=== PATIENT | male | born 1970 | race Caucasian/White ===

== ENCOUNTER → 2019-11-13 10:47 | Outpatient (BNVA) | payer BC, SELFPAY | PROVIDERS: PCP Nurse Practitioner Family; Visit Provider Urology | DX: E29.1 Testicular hypofunction (principal); Z12.5 Encounter for screening for malignant neoplasm of prostate; R79.89 Other specified abnormal findings of blood chemistry | CPT/HCPCS: 81001 ==

== ENCOUNTER → 2020-07-16 08:06 | Outpatient (BNVA) | payer OTHER, SELFPAY | PROVIDERS: PCP Nurse Practitioner Family; Visit Provider Urology | DX: Z12.5 Encounter for screening for malignant neoplasm of prostate (principal); E29.1 Testicular hypofunction | CPT/HCPCS: 81003; 84403; G0103 ==

== ENCOUNTER → 2021-01-13 15:31 | Outpatient (BNVA) | payer OTHER, SELFPAY | PROVIDERS: PCP Nurse Practitioner Family; Visit Provider Urology | DX: R79.89 Other specified abnormal findings of blood chemistry (principal); E29.1 Testicular hypofunction | CPT/HCPCS: 84403 ==

== ENCOUNTER 2021-03-13 08:02 | Outpatient (CLI) | payer OTHER, SELFPAY ==
[2021-03-13 08:50] VITALS: BMI 27.3
--- NOTE | 2021-03-13 08:51 | NMCV_ITS ---
NM tammie perf SPECT r/s* [id number] Nathanael Fraser Age: 50 Gender: M : 1970 Exam Date: 03/13/2021 09:45 Ordering Phys: Rikki Menendez NP Technologist: LAYA Fenton Exam Location: [facility] Indications: CHEST PAIN STRESS TEST [facility] IMAGE PROTOCOL Rest/Stress 1 Exercise Day Radiopharmaceutical Dose (mCi) Administration Site Administered by Rest: Tc-99m 10.8 IV LAYA Campbell Sestamibi Stress:Tc-99m 32.8 IV LAYA Campbell Sestamibi Rest: 13-Mar-2021 60 Discovery 630 Stress: 13-Mar-2021 15 Discovery 630 Radiopharmaceutical was injected at 85 % maximum heart rate. Images obtained in supine and prone position. SPECT RESULTS Technical Quality: Excellent Raw Data Analysis: Normal Image Corrections: No attenuation or motion correction applied Summed Stress Score: 3 Summed Rest Score: 0 Summed Difference Score: 3 PERFUSION FINDINGS Small sized perfusion abnormality of mild severity of mid anterior and mid lateral quintero on stress images. FUNCTIONAL RESULTS (calculated via Gated SPECT) Stress Image LV EF (%): 73 Stress EDV (mL):84 TID: 0.81 Stress ESV (mL):23 FUNCTIONAL FINDINGS: The left ventricle is normal in size. Transient Ischemia Dilatation of 0.81. There is normal left ventricular systolic function. The left ventricular ejection fraction is normal with a value of 73%. There is normal left ventricular wall thickening with no regional wall motion abnormality. Normal end diastolic and end systolic volumes. IMPRESSIONS 1. Small sized reversible perfusion abnormality of mild severity of mid anterior and mid lateral quintero. 2. This may represent small area of ischemia in left anterior descending/circumflex artery territory. 3. Overall left ventricular systolic function is normal without regional wall motion abnormalities. 4. No prior similar studies to compare. Liseth Fuentes MD (Electronically Signed) Final Date: 15 March 2021 22:35 S
--- NOTE | 2021-03-13 08:51 | ECG_ITS ---
[facility] Test Date: 2021-03-13 Pat Name: Nathanael Fraser Department: Room: Gender: Male Facial Operator: : 1970 Requested By: Rikki Menendez Order Number: [id number] Barrios MD: Liseth Fuentes M.D. Interpretive Statements NAME OF STUDY: EXERCISE SESTAMIBI STRESS TEST INDICATION: Dyspnea on exertion, chest pain Baseline blood pressure of 135/92 mm Hg, heart rate of 67 beats per minute and oxygen saturation of 98%. EKG showed normal sinus rhythm, normal axis with nonspecific T wave inversion in lead III, aVF and V6. The patient exercised for 8 minutes 42 seconds on a standard Nik protocol. Patient attained a maximum heart rate of 153 beats per minute(88% of the maximum predicted heart rate) with a blood pressure at the peak exercise of 185/93 mm Hg and oxygen saturation 95%. The EKG at the peak exercise revealed sinus tachycardia with no significant ST-T wave changes. Patient did not have any chest pain or any significant arrhythmis with the exercise. The study was terminated due to exertional fatigue and shortness of breath. During the recovery phase, there were no new changes. Blood pressure at the end of the recovery phase was 133/85 mm Hg with a heart rate of 100 beats per minute and oxygen saturation 98%. CONCLUSION: 1. Normal EKG response to treadmill exercise. 2. No exercise-induced chest pain or cardiac arrhythmia 3. Excellent exercise tolerance, attained a maximum of 10.2 METs. Maximum VO2 of 35.7 mL/kg/min. 4. Baseline normal blood pressure with normal response to exercise. 5. Perfusion scan will be documented separately. Electronically Signed On 03-26-2021 12:38:24 CDT by Liseth Fuentes M.D. [id number]
[2021-03-13 10:39] VITALS: BP 133/85; PULSE 99
== END 2021-03-13 08:03 | disposition home or self-care (01) ==
LOC: CDL 08:04
PROVIDERS: PCP Nurse Practitioner Family; Visit Provider Nurse Practitioner Family
DX: R06.09 Other forms of dyspnea (principal); R07.9 Chest pain, unspecified; R06.02 Shortness of breath
CPT/HCPCS: 78452; 93017; A9500

== ENCOUNTER → 2021-04-28 10:26 | Outpatient (BNVA) | payer OTHER, SELFPAY | PROVIDERS: PCP Nurse Practitioner Family; Referring Provider Internal Medicine Cardiovascular Disease; Visit Provider Internal Medicine Cardiovascular Disease | DX: R94.39 Abnormal result of other cardiovascular function study (principal); R07.9 Chest pain, unspecified; R07.2 Precordial pain; Z01.818 Encounter for other preprocedural examination; Z20.822 Contact with and (suspected) exposure to COVID-19 | CPT/HCPCS: 80048; 85025; 85610; 87635 ==

== ENCOUNTER 2021-05-04 06:16 | Outpatient (CLI) | payer OTHER, SELFPAY ==
[2021-05-04] VITALS (17 sets, daily range): BP systolic 92–152; BP diastolic 63–94; PULSE 88–114; RESP 14–19; TEMP 36.9; O2SAT 91–96; BMI 28.1
--- NOTE | 2021-05-04 06:00 | XACV_ITS ---
Ht: 170 cm Wt: 82 kg BSA: 1.98 m2 Gender: Male : 1970 Any Known Allergies: Penicillins Exam Priority: Routine Indication(s): - Unstable angina Procedure(s): Procedure Description: Diagnostic procedure Procedure Description: Left Heart Catheterization Procedure Description: Left ventriculography Procedure Description: Coronary Angiography Luis Armando JOEL; Diagnostic Cath Status: Elective Diagnostic Findings * No disease noted in the Left Main, Left Anterior Descending, Right, or Circumflex coronary arteries. * Coronary angiography shows right dominance. Conclusions 1. Sluggish flow in the LAD and RCA was noted most likely due to endothelial dysfunction advised quitting smoking, continue use of isosorbide mononitrate and good control of blood pressure. 2. No disease noted in the Left Main, Left Anterior Descending, Right, or Circumflex coronary arteries. 3. All quintero are normal. 4. Normal left ventricular systolic function. Ejection fraction of 60%. Recommendations * Continue current medical management and risk factor modification. Diagnostic RX Recommendation: medical therapy and/or counseling Ventriculography Ejection Fraction: 60.0 % Left Ventriculography Findings: * LVEDP 16 mmHg. Pressures Phase:Rest AO : / ( 0 ) @ 6:06:00 AM / ( 0 ) @ 6:06:00 AM 84 / -16 ( 0 ) @ 6:12:00 AM 107 / 70 ( 86 ) @ 6:54:00 AM 108 / 71 ( 87 ) @ 6:54:00 AM / ( -2 ) @ 6:57:00 AM LV : 118 / -11 / 9 @ 6:53:00 AM 111 / -12 / 11 @ 6:54:00 AM 116 / -8 / 16 @ 6:54:00 AM Valves Phase:DefaultPhase AV : 9.0 @ 9:12:27 AM AV Mean Gradient: 11.0 @ 9:12:27 AM Clinical Evaluation EBL: 5mL-10mL Procedural Details Procedure Consent Obtained. Admit Source: Out Patient. Pre-Procedure Time Out. Identified patient by full name and date of as verbalized by the patient/guarantor. Does the consent match the physician's order: Yes. Accurate & Complete Informed Consent: Yes. Inpatient/Outpatient History & Physical on Chart: Yes. If H&P is completed, is and addenduem needed: No; If yes, is the addendum complete: N/A. Visualize and Verify Site with Patient/Guarantor: N/A. Relevant Radiology Images available: N/A. The risks, benefits, and alternatives of sedation and/or procedure were discussed by physician. The patient agrees to continue. Procedure started. [facility] Clinical Fraility Score: 3: Managing Well. Global Category Manager Indications: Unstable Angina. Chest Pain Symptom Assessment: Typical Angina Symptoms. Cardiovascular Instability: No, Stable. Correct patient, site and procedure confirmed by cath team. Current diagnosis: Unstable angina. PERRLA. 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 Lungs clear x 5 lobes. IV Site on Arrival: 20 gauge in the left anticubital. IV Fluids: 0.9% NaCl at KVO. 0 mL infused prior to clinical laboratory aides teacher. Pre Procedural Pulses: bilateral radial was 3+. Pre Procedural Pulses: bilateral posterior tibial was 3+. Pre Procedural Pulses: bilateral dorsalis pedis was 3+. Oxygen started at 2liters/min via nasal canula. right groin was prepped with chloroprep then draped in the usual sterile fashion. right radial was prepped with chloroprep then draped in the usual sterile fashion. Physician notified. Baseline sample Acquired. HR: 92 BPM. Baseline sample Acquired. HR: 101 BPM. Family updated by Dr Durán prior to start of procedure. Equipment: 5F - Radial. Cardiac Cath Pack. ACIST Manifold Kit Model BT 2000. Heparinized Saline (2 units/mL), 1000 mL bag. Inventory is WealthTouch 5Fr Glidesheath. Equipment: 6F - Radial. Equipment: 5F - Femoral. Equipment: 6F - Femoral. Physician arrived. Physician scrubbed in. Immediate Pre-Procedure Time Out. Correct Patient: Yes; Correct Procedure: Yes; Correct Site: Yes; Correct Patient Position: Yes; Correct Supplies: Yes; Dried Flammable Prep: Yes; Blood Products Available: N/A;. Lidocaine 1% infiltrated to the right radial. Arterial access obtained. A TR 5FR Radial TIG 4.0 110cm was advanced over the wire and used for left and right coronary angiography. Wire removed. Hand injection of the brachial region to assess for radial loop. Radial loop. Catheter removed over the wire. Aborting radial approach. MD attempting to gain access in the femoral artery. A TR Band was successful obtaining hemostatsis at the Right Radial artery insertion site. Lidocaine 1% infiltrated to the right groin. Arterial access obtained with micropuncture set. A CRD 5F JL4 Diagnostic Catheter was advanced over the wire and used for Left coronary angiography. Kit, Micropuncture. Multiple views taken of left coronary artery. Catheter removed over the exchange wire. A CRD 5F JR4 Diagnostic Catheter was advanced over the wire and used for Right coronary angiography. Multiple views taken of right coronary artery. Catheter removed over the exchange wire. Physician review of films. A CRD 5F 145 Angled Pig Diagnostic Catheter was advanced over the wire and used for Ventriculography. Family updated. EDP Sample taken: LV 118/-12,9; HR: 93 BPM; SpO2: 97%. LV gram performed in JOHN @ 10 mL/second for a total of 30 mL. Patient EF: Normal. EDP Sample taken: LV 111/-13,11; HR: 90 BPM; SpO2: 96%. Pullback taken: LV 116/-9,16; AO 107/70(86); Mean: 11mmHg, Peak to Peak: 9mmHg, SEP: 20sec/min; HR: 90 BPM; SpO2: 96%. Catheter removed over the exchange wire. A Right femoral angiogram was performed to determine safe placement of closure device. A Mynx was successful obtaining hemostatsis at the Right Femoral artery insertion site. Sheath(s) removed and manual pressure held until hemostasis was achieved. Sterile 4x4 and Op-site applied to the puncture site. No oozing or hematoma noted. Post sheath removal instructions were given and the patient verbalized understanding. Mynx placed without complications. Lot [id number]. Exp 03-05-23. No signs or symptoms of hematoma noted. Sterile dressing applied per usual sterile fashion. Post Procedure: Pulses reassessed and unchanged. PERRLA. 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 No VTE prophylaxis required. Medication's Wasted: Lidocaine 1% = 2 mL. Medication's Wasted: Nitro = 49.8 mg. Medication's Wasted: Heparin = 1000 units. Total IV fluids: 50 mL. Fluoro: 4:09. Contrast type used: Omnipaque 300 mg/mL, 150 mL bottle. Omnipaque 96 ml. Post-op diagnosis: Endothelial dysfunction. Complications: None. Estimated blood loss: 5mL-10mL. Procedure completed. Patient transferred by bed to CPRU. Vital chart was stopped. Current Diagnosis : Unstable angina. Access Site Site: Right Radial artery Sheath Size: 6 Fr Hemostasis Method: TR Band Hemostasis Success: Successful Site: Right Femoral artery Sheath Size: 6 Fr Hemostasis Method: Mynx Hemostasis Success: Successful Procedure Medications Start: 8:09 AM Stop: 8:09 AM Medication: Versed Amount: 1 mg Route: I.V. Start: 8:09 AM Stop: 8:09 AM Medication: Fentanyl Amount: 50 mcg Route: I.V. Start: 8:18 AM Stop: 8:18 AM Medication: Versed Amount: 1 mg Route: I.V. Start: 8:18 AM Stop: 8:18 AM Medication: Lopressor (metoprolol) Amount: 5 mg Route: I.V. Start: 8:21 AM Stop: 8: AM Medication: Nitrogylcerin Amount: 200 mcg Route: I.A. Start: 8:22 AM Stop: 8: AM Medication: Fentanyl Amount: 25 mcg Route: I.V. Start: 8:35 AM Stop: 8:35 AM Medication: Versed 1 mg and Fentanyl 25 mcg Amount: 1 Route: I.V. Start: 8:47 AM Stop: 8:47 AM Medication: Versed Amount: 1 mg Route: I.V. I, the attending physician, have reviewed and verified all procedure medications. Yes, all medications given per verbal order History/Risk Factors Hypertension: Yes Dyslipidemia: Yes Peripheral Arterial Disease (PAD): No Myocardial Infarction ([place]): No Obesity: No Renal Disease: No Tobacco Use: Current/Recent(w/in 1 year) Prior Interventions PCI: No CABG: No Valve Surgery: No Report Signatures Finalized by Gloria Durán MD on 05/17/2021 07:21 PM
[2021-05-04] MEDS: diphenhydrAMINE 50 mg Capsule PO (06:52)
--- NOTE | 2021-05-04 08:09 | W.PM.OPSUD ---
Surgery/Procedure H&P Update DATE OF PROCEDURE: May 04, 2021 DATE H&P PERFORMED: 04/16/21 H&P UPDATE INFORMATION: I have reviewed H&P completed within last 30 days, I have examined patient prior to procedure and No changes to prior documentation PREOP DIAGNOSIS: Abnormal stress test, worsening of chest pain PLANNED PROCEDURE: Operation Date: 05/04/21 07:00 Proposed Procedures p Cardiac Catheterization(Left) - Gloria Durán MD PATIENT REASSESSED PRIOR TO SEDATION, WITH NO CHANGE NOTED: Yes PHYSICAL EXAM: alert, oriented x 3 and clear to auscultation bilaterally AIRWAY EVAL/ANESTHESIA PLAN: ASA II and Risks, benefits & alternatives of sedation and/or procedure discussed ADDITIONAL INFORMATION: Patient has been explained he understand risk for stroke contrast-induced nephropathy dialysis major minor bleed urgent emergent bypass surgery vascular surgery hematoma pseudoaneurysm. He is a candidate for DAPT
--- NOTE | 2021-05-04 09:15 | PC.NURSE ---
received pt from clinical laboratory director post diagnostic [facility] via stretcher. pt has tr band on right wrist with no hamatoma or bruising noted. distal pulse palpable. he also has a right femoral site where a closure device was used. no bleeding or hematoma noted. distal pulsed palpable. pt asleep but able to be awakened. pt family at bedside and educated on pt recovery. family stated understanding. will continue to educate throughout recovery. plan to dc after 4 hrs. will continue to monitor.
--- NOTE | 2021-05-04 12:25 | PC.NURSE ---
pt up to the bathroom post 3 hours flat. pt complains of no pain and no hematoma noted. will continue to monitor til discharge.
== END 2021-05-04 13:07 | disposition home or self-care (01) ==
PROVIDERS: PCP Nurse Practitioner Family; Visit Provider Internal Medicine Cardiovascular Disease
DX: R07.89 Other chest pain (principal); E78.5 Hyperlipidemia, unspecified; I10 Essential (primary) hypertension; R94.39 Abnormal result of other cardiovascular function study; E78.00 Pure hypercholesterolemia, unspecified; R07.2 Precordial pain; R06.02 Shortness of breath
CPT/HCPCS: 36415; 93452; C1760; C1769; C1887; C1894; J1644; J2250; J3010; J3490; J7030; Q0163; Q9967

== ENCOUNTER → 2021-05-11 10:17 | Outpatient (BNVA) | payer OTHER, SELFPAY | PROVIDERS: PCP Nurse Practitioner Family; Visit Provider Nurse Practitioner Family | DX: I10 Essential (primary) hypertension (principal) | CPT/HCPCS: 80048 ==

== ENCOUNTER → 2021-07-21 15:05 | Outpatient (BNVA) | payer OTHER, SELFPAY | PROVIDERS: PCP Nurse Practitioner Family; Visit Provider Nurse Practitioner Family | DX: N52.9 Male erectile dysfunction, unspecified (principal); E29.1 Testicular hypofunction | CPT/HCPCS: 81003; 84403 ==

== ENCOUNTER → 2021-07-24 07:51 | Outpatient (BNVA) | payer OTHER, SELFPAY | PROVIDERS: PCP Nurse Practitioner Family; Visit Provider Nurse Practitioner Family | DX: R79.89 Other specified abnormal findings of blood chemistry (principal) | CPT/HCPCS: 84403 ==

== ENCOUNTER 2022-01-19 15:02 | Outpatient (CLI) | payer OTHER, SELFPAY ==
[2022-01-19 16:48] LABS: Testosterone Total - Urology 384 ng/mL (300-1000)
== END 2022-01-19 15:03 | disposition home or self-care (01) ==
LOC: LAB 15:03
PROVIDERS: PCP Nurse Practitioner Family; Visit Provider Urology
DX: N52.9 Male erectile dysfunction, unspecified (principal)
CPT/HCPCS: 81003; 84403

== ENCOUNTER → 2022-04-02 11:48 | Outpatient (BNVA) | payer OTHER, SELFPAY | PROVIDERS: PCP Nurse Practitioner Family; Visit Provider Internal Medicine Cardiovascular Disease | DX: R07.2 Precordial pain (principal); R94.39 Abnormal result of other cardiovascular function study; E78.00 Pure hypercholesterolemia, unspecified; I10 Essential (primary) hypertension; I25.10 Atherosclerotic heart disease of native coronary artery without angina pectoris | CPT/HCPCS: 36415; 80053; 80061; 83721 ==

== ENCOUNTER 2022-07-20 08:48 | Outpatient (CLI) | payer OTHER, SELFPAY ==
[2022-07-20 10:32] LABS: Testosterone Total 413.5 ng/dL (193-740)
[2022-07-20 12:04] LABS: PSA Screen - Urology 3.61 ng/mL (0-4)
== END 2022-07-20 08:49 | disposition home or self-care (01) ==
LOC: LAB 08:56
PROVIDERS: PCP Nurse Practitioner Family; Visit Provider Urology
DX: Z12.5 Encounter for screening for malignant neoplasm of prostate (principal); N52.9 Male erectile dysfunction, unspecified
CPT/HCPCS: 36415; 84403; G0103

== ENCOUNTER 2022-10-16 21:26 | Emergency (ER) | payer OTHER, SELFPAY ==
[2022-10-16 21:31] VITALS: BP 121/97; PULSE 125; RESP 18; TEMP 36.4; O2SAT 95; BMI 27.1
--- NOTE | 2022-10-16 21:43 | ECG_ITS ---
[facility] Test Date: 2022-10-16 Pat Name: Nathanael Fraser Department: Room: Gender: Male Compensation Supervisor: : 1970 Requested By: Bienvenido Serrano Order Number: [id number] Denis MD: Mary Ny M.D. Measurements Intervals [place] Rate: 120 P: 64 NE: 146 QRS: 77 QRSD: 97 T: -14 QT: 295 QTc: 418 Interpretive Statements SINUS TACHYCARDIA NONSPECIFIC ST & T-WAVE ABNORMALITY Compared to ECG 12/07/2018 13:13:00 T-wave abnormality now present Sinus rhythm no longer present Electronically Signed On 10-17-2022 21:05:46 CDT by Mary Ny M.D. [id number]
--- NOTE | 2022-10-16 22:18 | ECG_ITS ---
[facility] Test Date: 2022-10-16 Pat Name: Nathanael Fraser Department: Room: Gender: Male Mapping Specialist: : 1970 Requested By: Milan Zavala Order Number: [id number] Denis MD: Mary Ny M.D. Measurements Intervals [place] Rate: 91 P: 65 WV: 173 QRS: 60 QRSD: 93 T: 33 QT: 335 QTc: 414 Interpretive Statements SINUS RHYTHM NONSPECIFIC T-WAVE ABNORMALITY Compared to ECG 10/16/2022 21:43:27 Sinus tachycardia no longer present T-wave abnormality still present Electronically Signed On 10-17-2022 21:06:27 CDT by Mary Ny M.D. [id number]
--- NOTE | 2022-10-16 22:18 | XRR_ITS ---
PROCEDURE INFORMATION: Exam: XR Chest Exam date and time: 10/16/2022 10:29 PM Age: 52 years old Clinical indication: Pain; Chest pressure; Additional info: Cp TECHNIQUE: Imaging protocol: Radiologic exam of the chest. Views: 1 view. COMPARISON: CR XR chest 1V [id number] 12/07/2018 10:12 AM FINDINGS: Lungs: Unremarkable. No consolidation. Pleural spaces: Unremarkable. No pleural effusion. No pneumothorax. Heart/Mediastinum: Unremarkable. No cardiomegaly. Bones/joints: Unremarkable. XR/XR chest 1V portable [id number] IMPRESSION: No acute findings.
[2022-10-16 22:41] LABS: Basophils # 0.1 10^3/uL (0.0-0.1); Eosinophils # 0.1 10^3/uL (0.0-0.8); Eosinophils % 1.8 %; Hematocrit 52.7 % (42.0-52.0); Hemoglobin 17.7 g/dL (11.7-16.6); Lymphocytes # 1.3 10^3/uL (0.8-4.8); Lymphocytes % 15.8 %; Mean Corpuscular HGB Conc 33.6 g/dL (30.0-36.0); Mean Corpuscular Hemoglobin 30.3 pg (28.0-34.0); Mean Corpuscular Volume 90.2 fl (80-94); Monocytes # 0.6 10^3/uL (0.2-0.9); Monocytes % 7.5 %; Neutrophils # 5.88 10^3/uL (1.8-7.7); Neutrophils % 73.5 %; Nucleated Red Blood Cells % 0 %; Platelet Count 212 10^3/cmm (130-400); Red Blood Count 5.84 10^6/uL (4.1-5.3); Red Cell Distribution Width 11.6 % (12.1-15.1)
[2022-10-16] MEDS: sodium chloride 0.9% 1,000 ML 999 ML IV (22:51)
[2022-10-16] MEDS: diphenhydrAMINE 50 mg/mL SDV 1mL 25 MG IVP (22:51)
[2022-10-16] MEDS: dexamethasone 10 mg/mL INJ IVP (22:51)
[2022-10-16] MEDS: ondansetron 2 mg/ML SDV 2 mL 4 MG IVP (22:51)
[2022-10-16 22:55] VITALS: BP 131/76; PULSE 99; RESP 18; O2SAT 96
[2022-10-16 22:55] LABS: INR 0.95 (0.8-1.2)
[2022-10-16 22:56] LABS: Partial Thromboplastin Time 26.5 SECONDS (23.9-36.7)
--- NOTE | 2022-10-16 22:57 | ED_ITS ---
Documented by User: Milan Zavala 10/16/22 23:12 HPI - Chest Pain General: Chief Complaint: Chest Pain Stated Complaint: cp, arms tingling, sob Time Seen by Provider: 10/16/22 21:40 History of Present Illness: 52-year-old male presents emergency department chief complaint having midsternal chest pain and pressure nausea and a rash and swelling to his body patient reports that he has been taking Antabuse over the last several weeks with the hopes of discontinuing alcohol in which upon drinking some alcohol today he got quite sick patient reports he had 2 beers prior to arrival he reported that he developed chest pressure shortness of breath facial swelling and a diffuse rash. Patient reports he has been a social drinker since the age of 17. The patient does not recall any prior history of cardiac issues reports no recent infections or illnesses or any other associated symptoms. Associated symptoms: Reports dyspnea, nausea and palpitations; Deny abdominal pain, fever(s) or vomiting Review of Systems General: Reports: 10 or more systems reviewed and unremarkable except in HPI and below Const: Denies: fever(s), chills, fatigue or malaise Eyes: Denies: change in vision or blurry vision Card: Reports: chest pain and palpitations Resp: Reports: dyspnea GI: Reports: nausea; Denies: abdominal pain or vomiting : Denies: flank pain Musc: Denies: extremity pain or extremity swelling Skin/Breast: Reports: rash and erythema Neuro: Denies: headache(s) Psych: Denies: anxiety or depression Michael/Lymph: Denies: easy bleeding All/Imm: Denies: urticaria, throat swelling or facial swelling PFSH ED PFSH: Medical History Erectile dysfunction History of malignant melanoma HTN (hypertension) Hypercholesteremia Hypogonadism in male Prostate cancer screening Surgical History Hx of appendectomy Social History Smoking and tobacco status: never smoked Alcohol intake: current Alcohol intake frequency: 0-2 Drinks per Day Substance/Drug Use: unknown Adopted: No Caregiver/support person: No Lives independently: No Household members: spouse Marital status: Current occupational status: employed Current gender identity: Male Physical Exam Narrative: EXAM NARRATIVE: Patient appears in moderate distress rash diffusely appreciated mild facial swelling noted Const: COMMON NORMALS: no acute distress, patient oriented x3 and healthy appearing HENMT: COMMON NORMALS: normocephalic and atraumatic HEAD & SCALP: normocephalic and atraumatic Eye: COMMON NORMALS: Equal, round and reactive pupils present and EOMs intact bilaterally PUPIL: Yes Equal, round and reactive pupils present Neck/C-Spine: COMMON NORMALS: full ROM, supple and no JVD Lymph: LYMPHATIC: no lymphadenopathy noted Chest: COMMONS NORMALS: normal inspection of the chest and normal palpation of entire chest wall Resp: COMMON NORMALS: normal respiratory effort, No retractions and clear to auscultation bilaterally EFFORT & INSPECTION: Yes able to speak in complete sentences and Yes symmetric chest movement AUSCULTATION: clear to auscultation bilaterally Cardio: COMMON NORMALS: no JVD and regular rhythm; negative for regular rate (Mild pericardial fusion exam) RATE: abnormal rate (Mild pericardial fusion exam) RHYTHM: regular rhythm GI: COMMON NORMALS: Normal to inspection, nondistended, normoactive bowel sounds present, Soft to palpation and non-tender INSPECTION: Yes normal to inspection PALPATION: Yes Soft to palpation : COMMON NORMALS: Yes no CVA tenderness BLADDER/KIDNEY EXAM: Yes no CVA t enderness Back/Pelvis: COMMON NORMALS: no CVA tenderness Extremity: COMMON NORMALS: normal to inspection and full ROM Neuro: COMMON NORMALS: patient oriented x3, CN's II-XII intact bilaterally, moves all extremities and no focal motor deficits Psych: COMMON NORMALS: mental status grossly normal, Normal thought process present, cooperative and normal affect THOUGHT PROCESS: Normal thought process present Skin: COMMON NORMALS: no rashes or lesions noted GENERAL SKIN EXAM: no rashes or lesions noted Course Vital Signs: Vital signs: Vital Signs Temperature 97.6 F 10/16/22 21:31 Pulse Rate 93 10/17/22 00:35 Respiratory Rate 21 H 10/17/22 00:35 Blood Pressure 121/78 10/17/22 00:35 Pulse Oximetry 95 10/17/22 00:35 Oxygen Delivery Me thod Room Air 10/17/22 00:35 MDM - Chest Pain Medical Decision Making Due to the patient's symptoms and condition IV established basic lab work imaging obtained Concern for possible disulfiram reaction due to patient taking Antabuse with routine alcohol we will go ahead and treat as needed IV fluids Benadryl stomach meds as well as nausea meds we will also do a basic cardiac work-up. We will continue to follow. This patient was signed out to Dr. Gardner at [phone] anticipate discharge home pending lab work and imaging Lab Data 10/16/22 22:30 10/16/22 22:30 Radiology Impressions Chest X-Ray 10/16/22 22:18 IMPRESSION: No acute findings. Laboratory Results WBC 8.0 10^3/uL (4.0-10.0) 10/16/22 22:30 RBC 5.84 10^6/uL (4.1-5.3) H 10/16/22 22:30 Hgb 17.7 g/dL (11.7-16.6) H 10/16/22 22:30 Hct 52.7 % (42.0-52.0) H 10/16/22 22:30 MCV 90.2 fl (80-94) 10/16/22 22: MCH 30.3 pg (28.0-34.0) 10/16/22 22: MCHC 33.6 g/dL (30.0-36.0) 10/16/22 22: RDW 11.6 % (12.1-15.1) L 10/16/22 22: Plt Count 212 10^3/cmm (130-400) 10/16/22 22:30 MPV 10.0 fL (7.4-10.4) 10/16/22 22:30 Neut % (Auto) 73.5 % 10/16/22 22: Lymph % (Auto) 15.8 % 10/16/22 22:30 [place] % (Auto) 7.5 % 10/16/22 22: Eos % (Auto) 1.8 % 10/16/22: Baso % (Auto) 1.0 % 10/16/22: Neut # (Auto) 5.88 10^3/uL (1.8-7.7) 10/16/22 22: Lymph # (Auto) 1.3 10^3/uL (0.8-4.8) 10/16/22 22: [place] # (Auto) 0.6 10^3/uL (0.2-0.9) 10/16/22 22:30 Eos # (Auto) 0.1 10^3/uL (0.0-0.8) 10/16/22 22:30 Baso # (Auto) 0.1 10^3/uL (0.0-0.1) 10/16/22 22:30 Nucleated RBC % (auto) 0 % 10/16/22 22: Nucleated RBCs # 0.0 /100WBC 10/16/22 22: PT 13.00 SECONDS (12.1-14.9) 10/16/22 22: INR 0.95 (0.8-1.2) 10/16/22: APTT 26.5 SECONDS (23.9-36.7) 10/16/22 22:30 Sodium 135 mmol/L (136-145) L 10/16/22 22: Potassium 3.6 mmol/L (3.5-5.1) 10/16/22: Chloride 99 mmol/L (98-107) 10/16/22: Carbon Dioxide 20 mmol/L (22-29) L 10/16/22 22: Anion Gap 19.6 (5-19) H 10/16/22 22:30 BUN 15 mg/dL (6-20) 10/16/22: Creatinine 0.9 mg/dL (0.7-1.2) 10/16/22 22:30 GFR Calculation 89.3 mL/min (90-130) L 10/16/22 22: Glucose 157 mg/dL (65-115) H 10/16/22 22: Calculated Osmolality 284 mOsm/kg (285-295) L 10/16/22: Calcium 9.3 mg/dL (8.5-10.5) 10/16/22:30 Total Bilirubin 0.2 mg/dL (0.15-1.2) 10/16/22 22:30 AST 43 U/L (0-40) H 10/16/22 22:30 ALT 67 U/L (0-41) H 10/16/22 22:30 Alkaline Phosphatase 88 U/L (40-130) 10/16/22 22: Troponin T Baseline 11 ng/L (0-15) 10/16/22 22:30 Troponin T 120 Minute 12.22 ng/L (0-15) 10/17/22 00:05 Delta Troponin T 1.22 ABS# (0-10) 10/17/22 00:05 NT-Pro-B Natriuret Pep 36 pg/mL (0-125) 10/16/22 22:30 Total Protein 6.7 g/dL (6.6-8.7) 10/16/22 22:30 Albumin 4.2 g/dL (3.5-5.2) 10/16/22 22:30 Globulin 2.5 g/dL (1.3-4.6) 10/16/22 22:30 Lipase 40 U/L (13-60) 10/16/22 22:30 Urine Color Yellow (Yellow) 10/16/22 22:44 Urine Appearance Clear (CLEAR) 10/16/22 22:44 Urine pH 5 (5-7) 10/16/22 22:44 Ur Specific [place] 1.005 (1.005-1.030) 10/16/22 22:44 Urine Protein Neg (Negative) 10/16/22 22:44 Urine Glucose (UA) 1+ (Normal) H 10/16/22 22:44 Urine Ketones Negative (Negative) 10/16/22 22:44 Urine Blood Neg (Negative) 10/16/22 22:44 Urine Nitrate Negative (Negative) 10/16/22 22:44 Urine Bilirubin Neg (Negative) 10/16/22 22:44 Urine Urobilinogen Norm mg/dL (Negative) 10/16/22 22:44 Ur Leukocyte Esterase Negative (Negative) 10/16/22 22:44 Urine Opiates Screen Negative ng/mL (Negative) 10/16/22 22:44 Ur Barbiturates Screen Negative ng/mL (Negative) 10/16/22 22:44 Ur Phencyclidine Scrn Negative ng/mL (Negative) 10/16/22 22:44 Ur Amphetamines Screen Negative ng/mL (Negative) 10/16/22 22:44 U Benzodiazepines Scrn Negative ng/mL (Negative) 10/16/22 22:44 Urine Cocaine Screen Negative ng/mL (Negative) 10/16/22 22:44 U Marijuana (THC) Screen Negative ng/mL (Negative) 10/16/22 22:44 Discharge Plan Discharge Patient Disposition: Home Clinical Impression: Chest pain Condition: Stable Prescriptions: No Action isosorbide mononitrate 30 mg tablet extended release 24 hr 30 mg PO BID Qty: 180 4RF lisinopril 5 mg tablet 5 mg PO DAILY Qty: 90 4RF Viibryd 40 mg tablet 40 mg PO DAILY Rx Instructions: must administer with a meal/food buspirone 15 mg tablet 15 mg PO DAILY nitroglycerin [Nitrostat] 0.4 mg tablet, sublingual 0.4 mg sublingual Q5M PRN (Reason: chest pain) Qty: 25 3RF Rx Instructions: do not exceed 3 doses per episode lovastatin 10 mg tablet 10 mg PO DAILY Qty: 90 3RF testosterone cypionate 200 mg/mL oil 200 mg IM Q7D Qty: 10 5RF Discharge Orders: Discharge ED (Routine); Ordered 10/17/22 Ordered By: Bienvenido Gardner Referrals: Rikki Menendez NP [Primary Care Provider] - 1-3 days Patient Instructions: Chest Pain (ED) Activity Restrictions/Additional Instructions: Return for repeated episodes of chest pain, worsening shortness of breath, other concerning symptoms. See your doctor this week. Coding Level of Care Code ED Ski Binding Fitter And Repairer for Chg Fwd Documented by User: Bienvenido Gardner DO 10/17/22 01:16 HPI - Chest Pain General: Chief Complaint: Chest Pain Stated Complaint: cp, arms tingling, sob Time Seen by Provider: 10/16/22 21:40 PFSH ED PFSH: Medical History Erectile dysfunction History of malignant melanoma HTN (hypertension) Hypercholesteremia Hypogonadism in male Prostate cancer screening Surgical History Hx of appendectomy Social History Smoking and tobacco status: never smoked Alcohol intake: current Alcohol intake frequency: 0-2 Drinks per Day Substance/Drug Use: unknown Adopted: No Caregiver/support person: No Lives independently: No Household members: spouse Marital status: Current occupational status: employed Current gender identity: Male Course Vital Signs: Vital signs: Vital Signs Temperature 97.6 F 10/16/22 21:31 Pulse Rate 93 10/17/22 00:35 Respiratory Rate 21 H 10/17/22 00:35 Blood Pressure 121/78 10/17/22 00:35 Pulse Oximetry 95 10/17/22 00:35 Oxygen Delivery Me thod Room Air 10/17/22 00:35 MDM - Chest Pain Medical Decision Making Due to the patient's symptoms and condition IV established basic lab work imaging obtained Concern for possible disulfiram reaction due to patient taking Antabuse with routine alcohol we will go ahead and treat as needed IV fluids Benadryl stomach meds as well as nausea meds we will also do a basic cardiac work-up. We will continue to follow. This patient was signed out to Dr. Gardner at 2305 anticipate discharge home pending lab work and imaging 52-year-old gentleman checked out to me at shift change by the previous physician. He had chest pain and vomiting. Suspect a reaction to drinking alcohol while on Antabuse. CBC shows hemoconcentration with a hemoglobin of 17.7. Bicarbonate is 20. BMP is otherwise not remarkable. Liver enzymes are minimally elevated. Urine drug screen is negative. Troponin did not rise at 2 hours. EKG shows a sinus rhythm with a rate of 70 normal axis normal intervals, and no ST elevation or depression. He will be allowed discharge home close outpatient follow-up Lab Data 10/16/22 22:30 10/16/22 22:30 Radiology Impressions Chest X-Ray 10/16/22 22:18 IMPRESSION: No acute findings. Laboratory Results WBC 8.0 10^3/uL (4.0-10.0) 10/16/22 22:30 RBC 5.84 10^6/uL (4.1-5.3) H 10/16/22 22:30 Hgb 17.7 g/dL (11.7-16.6) H 10/16/22 22:30 Hct 52.7 % (42.0-52.0) H 10/16/22 22:30 MCV 90.2 fl (80-94) 10/16/22: MCH 30.3 pg (28.0-34.0) 10/16/22: MCHC 33.6 g/dL (30.0-36.0) 10/16/22: RDW 11.6 % (12.1-15.1) L 10/16/22: Plt Count 212 10^3/cmm (130-400) 10/16/22: MPV 10.0 fL (7.4-10.4) 10/16/22: Neut % (Auto) 73.5 % 10/16/22: Lymph % (Auto) 15.8 % 10/16/22: [place] % (Auto) 7.5 % 10/16/22: Eos % (Auto) 1.8 % 10/16/22 Baso % (Auto) 1.0 % 10/16/22 Neut # (Auto) 5.88 10^3/uL (1.8-7.7) 10/16/22: Lymph # (Auto) 1.3 10^3/uL (0.8-4.8) 10/16/22: [place] # (Auto) 0.6 10^3/uL (0.2-0.9) 10/16/22: Eos # (Auto) 0.1 10^3/uL (0.0-0.8) 10/16/22 Baso # (Auto) 0.1 10^3/uL (0.0-0.1) 10/16/22: Nucleated RBC % (auto) 0 % 10/16/22 Nucleated RBCs # 0.0 /100WBC 10/16/22: PT 13.00 SECONDS (12.1-14.9) 10/16/22 INR 0.95 (0.8-1.2) 10/16/22 APTT 26.5 SECONDS (23.9-36.7) 10/16/22: Sodium 135 mmol/L (136-145) L 10/16/22: Potassium 3.6 mmol/L (3.5-5.1) 10/16/22 22:30 Chloride 99 mmol/L (98-107) 10/16/22 22:30 Carbon Dioxide 20 mmol/L (22-29) L 10/16/22 22:30 Anion Gap 19.6 (5-19) H 10/16/22 22:30 BUN 15 mg/dL (6-20) 10/16/22 22:30 Creatinine 0.9 mg/dL (0.7-1.2) 10/16/22 22:30 GFR Calculation 89.3 mL/min (90-130) L 10/16/22 22:30 Glucose 157 mg/dL (65-115) H 10/16/22 22:30 Calculated Osmolality 284 mOsm/kg (285-295) L 10/16/22 22:30 Calcium 9.3 mg/dL (8.5-10.5) 10/16/22 22:30 Total Bilirubin 0.2 mg/dL (0.15-1.2) 10/16/22 22:30 AST 43 U/L (0-40) H 10/16/22 22:30 ALT 67 U/L (0-41) H 10/16/22 22:30 Alkaline Phosphatase 88 U/L (40-130) 10/16/22 22:30 Troponin T Baseline 11 ng/L (0-15) 10/16/22 22:30 Troponin T 120 Minute 12.22 ng/L (0-15) 10/17/22 00:05 Delta Troponin T 1.22 ABS# (0-10) 10/17/22 00:05 NT-Pro-B Natriuret Pep 36 pg/mL (0-125) 10/16/22 22:30 Total Protein 6.7 g/dL (6.6-8.7) 10/16/22 22:30 Albumin 4.2 g/dL (3.5-5.2) 10/16/22 22:30 Globulin 2.5 g/dL (1.3-4.6) 10/16/22 22:30 Lipase 40 U/L (13-60) 10/16/22 22:30 Urine Color Yellow (Yellow) 10/16/22 22:44 Urine Appearance Clear (CLEAR) 10/16/22 22:44 Urine pH 5 (5-7) 10/16/22 22:44 Ur Specific [place] 1.005 (1.005-1.030) 10/16/22 22:44 Urine Protein Neg (Negative) 10/16/22 22:44 Urine Glucose (UA) 1+ (Normal) H 10/16/22 22:44 Urine Ketones Negative (Negative) 10/16/22 22:44 Urine Blood Neg (Negative) 10/16/22 22:44 Urine Nitrate Negative (Negative) 10/16/22 22:44 Urine Bilirubin Neg (Negative) 10/16/22 22:44 Urine Urobilinogen Norm mg/dL (Negative) 10/16/22 22:44 Ur Leukocyte Esterase Negative (Negative) 10/16/22 22:44 Urine Opiates Screen Negative ng/mL (Negative) 10/16/22 22:44 Ur Barbiturates Screen Negative ng/mL (Negative) 10/16/22 22:44 Ur Phencyclidine Scrn Negative ng/mL (Negative) 10/16/22 22:44 Ur Amphetamines Screen Negative ng/mL (Negative) 10/16/22 22:44 U Benzodiazepines Scrn Negative ng/mL (Negative) 10/16/22 22:44 Urine Cocaine Screen Negative ng/mL (Negative) 10/16/22 22:44 U Marijuana (THC) Screen Negative ng/mL (Negative) 10/16/22 22:44 Discharge Plan Discharge Patient Disposition: Home Clinical Impression: Chest pain Condition: Stable Prescriptions: No Action isosorbide mononitrate 30 mg tablet extended release 24 hr 30 mg PO BID Qty: 180 4RF lisinopril 5 mg tablet 5 mg PO DAILY Qty: 90 4RF Viibryd 40 mg tablet 40 mg PO DAILY Rx Instructions: must administer with a meal/food buspirone 15 mg tablet 15 mg PO DAILY nitroglycerin [Nitrostat] 0.4 mg tablet, sublingual 0.4 mg sublingual Q5M PRN (Reason: chest pain) Qty: 25 3RF Rx Instructions: do not exceed 3 doses per episode lovastatin 10 mg tablet 10 mg PO DAILY Qty: 90 3RF testosterone cypionate 200 mg/mL oil 200 mg IM Q7D Qty: 10 5RF Discharge Orders: Discharge ED (Routine); Ordered 10/17/22 Ordered By: Bienvenido Gardner Referrals: Shon,Rikki, AUTO REPAIR SHOP MANAGER [Primary Care Provider] - 1-3 days Patient Instructions: Chest Pain (ED) Activity Restrictions/Additional Instructions: Return for repeated episodes of chest pain, worsening shortness of breath, other concerning symptoms. See your doctor this week. Coding Level of Care Code ED Ski Binding Fitter And Repairer for Ken Wong
[2022-10-16 22:59] LABS: Add Urine Microscopic? NO; Charge for UA Resulting for Rev
[2022-10-16 23:01] LABS: Troponin(5th) Baseline 11 ng/L (0-15)
[2022-10-16 23:06] LABS: Bilirubin Urine Neg (Negative); Blood Urine Neg (Negative); Glucose Urine UA 1+ (Normal); Ketones Urine Negative (Negative); Leukocyte Esterase Urine Negative (Negative); Nitrate Urine Negative (Negative); Protein Urine Neg (Negative); Specific Gravity, Urine 1.005 (1.005-1.030); Urine Appearance Clear (CLEAR); Urine Color Yellow (Yellow); Urobilinogen Urine Norm (Negative); pH Urine 5 (5-7)
[2022-10-16 23:11] LABS: Alanine Aminotransferase 67 U/L (0-41); Albumin Level 4.2 g/dL (3.5-5.2); Alkaline Phosphatase 88 U/L (40-130); Blood Urea Nitrogen 15 mg/dL (6-20); Calcium 9.3 mg/dL (8.5-10.5); Carbon Dioxide 20 mmol/L (22-29); Chloride 99 mmol/L (98-107); Globulin 2.5 g/dL (1.3-4.6); Glomerular Filtration Rate 89.3 mL/min (90-130); Glucose 157 mg/dL (65-115); Lipase 40 U/L (13-60); NT Pro B Type Natriuretic Pept 36 pg/mL (0-125); Osmolality Calculated 284 mOsm/kg (285-295); Sodium 135 mmol/L (136-145); Total Bilirubin 0.2 mg/dL (0.15-1.2); Total Protein 6.7 g/dL (6.6-8.7)
[2022-10-16 23:12] LABS: Anion Gap 19.6 (5-19); Aspartate Amino Transferase 43 U/L (0-40); Potassium 3.6 mmol/L (3.5-5.1)
[2022-10-16 23:23] LABS: Amphetamines Screen Urine Negative (Negative); Barbiturates Screen Urine Negative (Negative); Benzodiazepines Screen Urine Negative (Negative); Cocaine Screen Urine Negative (Negative); Opiate Screen Urine Negative (Negative); PCP Screen Urine Negative (Negative); THC Screen Urine Negative (Negative)
--- NOTE | 2022-10-17 00:33 | ECG_ITS ---
[facility] Test Date: 2022-10-17 Pat Name: Nathanael Fraser Department: Room: Gender: Male Silo Painter: : 1970 Requested By: Milan Zavala Order Number: [id number] Denis MD: Mary Ny M.D. Measurements Intervals [place] Rate: 68 P: 65 [place]: 146 QRS: 67 QRSD: 96 T: 59 QT: 331 QTc: 353 Interpretive Statements SINUS RHYTHM NONSPECIFIC T-WAVE ABNORMALITY Compared to ECG 10/16/2022 23:31:07 No significant changes Electronically Signed On 10-17-2022 21:18:44 CDT by Mary Ny M.D. [email or web address] lady of mercy hospitalBuzz All Stars/store/OM/[id number]/[id number]
[2022-10-17 00:35] VITALS: BP 121/78; PULSE 93; RESP 21; O2SAT 95
[2022-10-17 00:41] LABS: Troponin 5 2HR 12.22 ng/L (0-15)
[2022-10-17 01:02] LABS: Troponin 5 2HR Delta 1.22 ABS# (0-10)
[2022-10-17 01:14] VITALS: BP 123/76; PULSE 99; RESP 18; O2SAT 94
== END 2022-10-17 01:17 | disposition home or self-care (01) ==
PROVIDERS: Emergency Medicine; Emergency Provider Emergency Medicine; PCP Nurse Practitioner Family
DX: R07.9 Chest pain, unspecified (principal); I10 Essential (primary) hypertension
CPT/HCPCS: 71045; 80053; 80306; 81003; 83690; 83880; 84484; 85025; 85610; 85730; 93005; 96361; 96374; 96375; 99285; J1100; J1200; J2405; J7030

== ENCOUNTER 2022-11-18 07:24 | Outpatient (CLI) | payer OTHER, SELFPAY ==
[2022-11-18 08:24] LABS: PSA Screen - Urology 2.17 ng/mL (0-4); Testosterone Total - Urology 112 ng/mL (300-1000)
== END 2022-11-18 07:25 | disposition home or self-care (01) ==
PROVIDERS: PCP Nurse Practitioner Family; Visit Provider Urology
DX: Z12.5 Encounter for screening for malignant neoplasm of prostate (principal); E29.1 Testicular hypofunction
CPT/HCPCS: 36415; 84403; G0103

== ENCOUNTER → 2022-11-22 07:21 | Outpatient (BNVA) | payer OTHER, SELFPAY | PROVIDERS: PCP Nurse Practitioner Family; Visit Provider Urology | DX: R79.89 Other specified abnormal findings of blood chemistry (principal); E29.1 Testicular hypofunction; N52.9 Male erectile dysfunction, unspecified; Z12.5 Encounter for screening for malignant neoplasm of prostate | CPT/HCPCS: 81003 ==

== ENCOUNTER → 2022-12-14 16:30 | Outpatient (BNVA) | payer OTHER, SELFPAY | PROVIDERS: PCP Nurse Practitioner Family; Visit Provider Internal Medicine Cardiovascular Disease | DX: R07.9 Chest pain, unspecified (principal); E78.00 Pure hypercholesterolemia, unspecified; I10 Essential (primary) hypertension | CPT/HCPCS: 80061; 80076; 83721 ==

== ENCOUNTER 2024-01-31 07:04 | Outpatient (CLI) | payer OTHER, SELFPAY | END 2024-01-31 07:05 | disposition home or self-care (01) | PROVIDERS: PCP Family Medicine; Visit Provider Family Medicine | DX: R06.02 Shortness of breath (principal); R07.9 Chest pain, unspecified | CPT/HCPCS: 94010 ==

== ENCOUNTER 2024-02-29 12:18 | Inpatient (IN) | payer OTHER, SELFPAY ==
[2024-02-29] VITALS (30 sets, daily range): BP systolic 103–153; BP diastolic 67–96; PULSE 72–104; RESP 15–21; TEMP 36.7–37.2; O2SAT 92–97; BMI 27.6
--- NOTE | 2024-02-29 12:24 | ED.C_ITS ---
HPI - Psych 2 General: Chief Complaint: Overdose Stated Complaint: harmful to self, OD Time Seen by Provider: 02/29/24 12:19 Source: patient, EMS and police Mode of arrival: EMS Limitations: no limitations History of Present Illness: 53-year-old male is here with EMS and po lice after an overdose attempt. He states has been going through a lot of stress and has been going through a break-up and he had taken Ambien today he states to make appoint to his significant other. Patient is tearful and depressed here he is denying being suicidal at this time please states that he had informed him and he was trying to harm himself. Associated symptoms: Reports depression Related Data Home Medications Medication Instructions Recorded Confirmed vilazodone 40 mg tablet (Viibryd) 40 mg PO DAILY 11/13/19 02/29/24 buspirone 15 mg tablet 15 mg PO DAILY 01/16/20 02/29/24 hydroxyzine HCl 25 mg tablet 12.5 - 25 mg PO PRN PRN Anxiety 02/29/24 02/29/24 tadalafil 5 mg tablet 5 mg PO PRN PRN as directed 02/29/24 02/29/24 zolpidem 10 mg tablet 10 mg PO DAILY 02/29/24 02/29/24 Previous Rx's Medication Instructions Recorded nitroglycerin 0.4 mg sublingual 0.4 mg sublingual Q5M PRN chest 10/27/22 tablet (Nitrostat) pain #25 tabs testosterone cypionate 200 mg/mL 200 mg IM Q7D Low testosterone #10 11/22/22 intramuscular oil mL lisinopril 10 mg tablet 10 mg PO DAILY #90 tabs 12/14/22 lovastatin 20 mg tablet 20 mg PO DAILY #90 tabs 12/14/22 Allergies Allergy/AdvReac Type Severity Reaction Status Date / Time Penicillins Allergy Unknown Verified 11/22/22 07:28 Review of Systems 2 Const: Denies: fever(s), chills, body aches or change in appetite ENMT: Denies: throat pain or dental pain Card: Denies: chest pain Resp: Denies: dyspnea GI: Denies: abdominal pain, nausea, vomiting or diarrhea Musc: Denies: neck pain or back pain Skin/Breast: Denies: rash Neuro: Denies: headache(s) Psych: Reports: depression PFSH ED 2 PFSH: Medical History Low testosterone in male History of malignant melanoma HTN (hypertension) Hypercholesteremia Erectile dysfunction Prostate cancer screening Hypogonadism in male Surgical History Hx of appendectomy Family History Grandfather Pernicious anemia Grandmother Pernicious anemia Family/Other Pernicious anemia Social History Smoking and tobacco/nicotine status: never used tobacco/nicotine Alcohol intake: current Alcohol intake frequency: 0-2 Drinks per Day Substance/Drug Use: unknown Adopted: No Caregiver/support person: No Lives independently: No Household members: spouse Marital status: Current occupational status: employed Current gender identity: Male Physical Exam 2 Const: COMMON NORMALS: no acute distress, patient oriented x3 and healthy appearing HENMT: COMMON NORMALS: normocephalic and atraumatic HEAD & SCALP: n ormocephalic and atraumatic Eye: COMMON NORMALS: conjunctivae normal CONJUNCTIVA: Yes conjunctivae normal Neck/C-Spine: COMMON NORMALS: full ROM and supple Chest: COMMONS NORMALS: normal inspection of the chest Resp: COMMON NORMALS: normal respiratory effort Cardio: COMMON NORMALS: regular rate RATE: regular rate Extremity: COMMON NORMALS: normal to inspection Neuro: COMMON NORMALS: patient oriented x3, moves all extremities and no focal motor deficits Psych: COMMON NORMALS: mental status grossly normal MOOD & AFFECT: Yes depressed mood Skin: COMMON NORMALS: no rashes or lesions noted and no wounds GENERAL SKIN EXAM: no rashes or lesions noted Course 2 Vital Signs: Vital signs: Vital Signs Temperature 98.1 F 02/29/24 12:19 Pulse Rate 89 02/29/24 13:45 Respiratory Rate 17 02/29/24 13:45 Blood Pressure 117/96 02/29/24 14:00 Pulse Oximetry 95 02/29/24 13:45 Oxygen Delivery Me thod Room Air 02/29/24 12:19 MDM - Psych Medical Decision Making Patient presents here with suicidal ideation with overdose attempt did not take a lethal dose has been well-appearing here he is medically cleared I spoke to psychiatrist will admit at this time Medical Records I reviewed the patient's medical records. Lab Data I reviewed the patient's lab results. 02/29/24 12:01 02/29/24 12:01 Laboratory Results WBC 5.61 10^3/uL (3.29-11.43) 02/29/24 12:01 RBC 6.44 10^6/uL (3.85-5.65) H 02/29/24 12:01 Hgb 19.80 g/dL (11.27-16.99) H 02/29/24 12:01 Hct 59.2 % (37-53) H 02/29/24 12:01 MCV 91.9 fl (82-101) 02/29/24 12:01 MCH 30.7 pg (27-33) 02/29/24 12:01 MCHC 33.4 g/dL (30-55) 02/29/24 12:01 RDW 11.9 % (12.1-15.1) L 02/29/24 12:01 Plt Count 222 10^3/cmm (157-399) 02/29/24 12:01 MPV 10.3 fL (7.4-10.4) 02/29/24 12:01 Neut % (Auto) 63.2 % 02/29/24 12:01 Lymph % (Auto) 27.5 % 02/29/24 12:01 [place] % (Auto) 7.0 % 02/29/24 12:01 Eos % (Auto) 1.2 % 02/29/24 12:01 Baso % (Auto) 0.9 % 02/29/24 12:01 Neut # (Auto) 3.55 10^3/uL (1.8-7.7) 02/29/24 12:01 Lymph # (Auto) 1.5 10^3/uL (0.8-4.8) 02/29/24 12:01 [place] # (Auto) 0.4 10^3/uL (0.2-0.9) 02/29/24 12:01 Eos # (Auto) 0.1 10^3/uL (0.0-0.8) 02/29/24 12:01 Baso # (Auto) 0.1 10^3/uL (0.0-0.1) 02/29/24 12:01 Nucleated RBC % (auto) 0 % 02/29/24 12:01 Nucleated RBCs # 0.0 /100WBC 02/29/24 12:01 Sodium 139 mmol/L (136-145) 02/29/24 12:01 Potassium 4.5 mmol/L (3.5-5.1) 02/29/24 12:01 Chloride 101 mmol/L (98-107) 02/29/24 12:01 Carbon Dioxide 28 mmol/L (22-29) 02/29/24 12:01 Anion Gap 14.5 (5-19) 02/29/24 12:01 BUN 11 mg/dL (6-20) 02/29/24 12:01 Creatinine 1.0 mg/dL (0.7-1.2) 02/29/24 12:01 GFR Calculation 78.8 mL/min (90-130) L 02/29/24 12:01 Glucose 116 mg/dL (65-115) H 02/29/24 12:01 Calculated Osmolality 288 mOsm/kg (285-295) 02/29/24 12:01 Calcium 9.6 mg/dL (8.5-10.5) 02/29/24 12:01 Total Bilirubin 0.8 mg/dL (0.15-1.2) 02/29/24 12:01 AST 26 U/L (0-40) 02/29/24 12:01 ALT 34 U/L (0-41) 02/29/24 12:01 Alkaline Phosphatase 70 U/L (40-130) 02/29/24 12:01 Total Protein 8.0 g/dL (6.6-8.7) 02/29/24 12:01 Albumin 4.6 g/dL (3.5-5.2) 02/29/24 12:01 Globulin 3.4 g/dL (1.3-4.6) 02/29/24 12:01 Salicylates < 0.3 mg/dL (3-10) L 02/29/24 12:01 Acetaminophen < 5.0 ug/mL (10-30) L 02/29/24 12:01 Ethyl Alcohol < 10 mg/dL (0-10) 02/29/24 12:01 All radiology interpretation(s) finalized by discharge Discharge Plan Discharge Admit Provider: Toñito Tellez Condition: Stable Coding Level of Care Code ED Helminthology Teacher for Ken Wong
--- NOTE | 2024-02-29 12:30 | ECG_ITS ---
[facility] Test Date: 2024-02-29 Pat Name: Nathanael Fraser Department: Room: Gender: Male Database Report Writer: : 1970 Requested By: Clinton Mayer Order Number: [id number] Denis MD: Mary Ny M.D. Measurements Intervals [place] Rate: 82 P: 65 [place]: 141 QRS: 81 QRSD: 93 T: -39 QT: 326 QTc: 382 Interpretive Statements SINUS RHYTHM WITH SINUS ARRHYTHMIA ST DEVIATION AND MODERATE T-WAVE ABNORMALITY, CONSIDER LATERAL ISCHEMIA [-0.1+ mV T-WAVE IN I/aVL/V5/V6] ST DEVIATION AND MODERATE T-WAVE ABNORMALITY, CONSIDER INFERIOR ISCHEMIA [-0.1+ mV T-WAVE IN II/aVF] Compared to ECG 10/17/2022 00:33:37 Possible ischemia now present T-wave abnormality still present Electronically Signed On 02-29-2024 23:01:54 CDT by Mary Ny M.D. [email or web address]/store/NU/[id number] f
[2024-02-29 13:10] LABS: Basophils # 0.1 10^3/uL (0.0-0.1); Basophils % 0.9 %; Eosinophils # 0.1 10^3/uL (0.0-0.8); Eosinophils % 1.2 %; Hematocrit 59.2 % (37-53); Lymphocytes # 1.5 10^3/uL (0.8-4.8); Lymphocytes % 27.5 %; Mean Corpuscular HGB Conc 33.4 g/dL (30-55); Mean Corpuscular Hemoglobin 30.7 pg (27-33); Mean Corpuscular Volume 91.9 fl (82-101); Mean Platelet Volume 10.3 fL (7.4-10.4); Monocytes # 0.4 10^3/uL (0.2-0.9); Neutrophils # 3.55 10^3/uL (1.8-7.7); Neutrophils % 63.2 %; Nucleated Red Blood Cells % 0 %; Platelet Count 222 10^3/cmm (157-399); Red Blood Count 6.44 10^6/uL (3.85-5.65); Red Cell Distribution Width 11.9 % (12.1-15.1); White Blood Count 5.61 10^3/uL (3.29-11.43)
--- NOTE | 2024-02-29 13:18 | PC.NURSE ---
96 hour hold rights read and reviewed with patient. 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 Copy of rights was given to patient and patient verbalized understandings.
[2024-02-29 13:22] LABS: Alanine Aminotransferase 34 U/L (0-41); Albumin Level 4.6 g/dL (3.5-5.2); Alkaline Phosphatase 70 U/L (40-130); Anion Gap 14.5 (5-19); Aspartate Amino Transferase 26 U/L (0-40); Blood Urea Nitrogen 11 mg/dL (6-20); Calcium 9.6 mg/dL (8.5-10.5); Carbon Dioxide 28 mmol/L (22-29); Chloride 101 mmol/L (98-107); Creatinine Clr Calc Pharmacy 88.4967; Globulin 3.4 g/dL (1.3-4.6); Glomerular Filtration Rate 78.8 mL/min (90-130); Glucose 116 mg/dL (65-115); Osmolality Calculated 288 mOsm/kg (285-295); Potassium 4.5 mmol/L (3.5-5.1); Sodium 139 mmol/L (136-145); Total Bilirubin 0.8 mg/dL (0.15-1.2)
[2024-02-29 13:32] LABS: Acetaminophen < 5.0 ug/mL (10-30); Alcohol Level < 10 mg/dL (0-10); Salicylate < 0.3 mg/dL (3-10)
--- NOTE | 2024-02-29 13:59 | PC.NURSE ---
PT OKAYED TO HAVE RX ZOLPIDEM COUNTED. THIS NURSE AND ARVIND BHATT WITNESS GOT PT RX FROM [facility] IN [place] [facility]. COUNTED 26 TABS OF 10MG ZOLPIDEM. PT STATES HE GOT NEW RX OF 30 TABS ON 02/26/24. REPORTS TAKING ABOUT 4 TABS SINCE THEN. MEDS RETURNED TO BOTTLE AND PLACED BACK IN PT [facility] BAG IN [place] [address].
[2024-02-29] MEDS: OLANZapine 5 mg ODT PO (16:26)
--- NOTE | 2024-02-29 17:01 | PC.NURSE ---
PT ARRIVED TO THE EMERGENCY DEPARTMENT AFTER INTENTIONAL OVERDOSE OF 4 AMBIEN. UPON ADMIT TO THE NPU PT STATES THAT HE HAS BEEN STRUGGLING WITHIN HIS MARRIAGE AND HIS HAS DECIDED TO FILE FOR DIVORCE. PT ADMITS TO TAKING AN OVERDOSE OF AMBIEN. PT STATED NOT INTENDING TO KILL MYSELF BUT I DIDN'T WANT TO BE AROUND. I JUST WANTED TO SLEEP AND WAKE UP IN ANOTHER WORLD. I'M NOT GOING TO GO OUT TO KILL MYSELF. PT IS TEARFUL BUT COOPERATIVE.
[2024-03-01] MEDS: trazodone 50 mg Tablet PO (01:41)
[2024-03-01] MEDS: lisinopril 10 mg Tablet PO ×2 (01:43→08:36)
[2024-03-01 06:00] VITALS: BP 116/67; PULSE 82; RESP 18; TEMP 37.1; O2SAT 97
[2024-03-01 07:08] LABS: Amphetamines Screen Urine Negative (Negative); Barbiturates Screen Urine Negative (Negative); Benzodiazepines Screen Urine Negative (Negative); Cocaine Screen Urine Negative (Negative); Opiate Screen Urine Negative (Negative); PCP Screen Urine Negative (Negative); THC Screen Urine Negative (Negative)
[2024-03-01] MEDS: BuSPIRONE 10 mg Tablet 15 MG PO (08:35)
[2024-03-01] MEDS: atorvastatin 40 mg Tablet 20 MG PO (08:36)
--- NOTE | 2024-03-01 08:46 | PC.NURSE ---
Patient says that he wants to see the doctor and get out. Patient said that he didn't want to kill himself, that he wanted to sleep to get rid of the day and start the next day fresh because his is leaving him. Patient denies SI, HI, AVH. Patient endorses depression caused by his leaving him.
[2024-03-01 14:00] VITALS: BP 130/83; PULSE 70; RESP 17; TEMP 36.6; O2SAT 97
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
[2024-03-01 17:18] VITALS: BP 130/83; PULSE 70; RESP 17; TEMP 36.6; O2SAT 97
== END 2024-03-01 17:30 | disposition home or self-care (01) | DRG 885 ==
LOC: ER 13:14 → NP 14:05
PROVIDERS: Admitting Provider Psychiatry & Neurology Psychiatry; Emergency Provider Emergency Medicine; PCP Family Medicine; Visit Provider Psychiatry & Neurology Psychiatry
DX: F33.2 Major depressive disorder, recurrent severe without psychotic features (principal); F41.1 Generalized anxiety disorder; I10 Essential (primary) hypertension; Z79.899 Other long term (current) drug therapy; Z88.0 Allergy status to penicillin; Z63.0 Problems in relationship with spouse or partner; Z56.6 Other physical and mental strain related to work; Z62.810 Personal history of physical and sexual abuse in childhood; E78.00 Pure hypercholesterolemia, unspecified
CPT/HCPCS: 80053; 80306; 80307; 85025; 93005; 97150; 97165; 99285

== ENCOUNTER 2024-06-04 08:25 | Outpatient (CLI) | payer OTHER, SELFPAY ==
--- NOTE | 2024-06-04 08:30 | USCV_ITS ---
Evelio Nathanael Age: 54 Gender: M : 1970 Exam Date: 06/04/2024 09:13 Ordering Phys: Gloria Durán MD ([email or web address]) Technologist: ELISHA Exam Location: [facility] [place] Indication: CP, SOB BP: 125 / 80 HR: 68 Rhythm: Sinus Technical Quality: Adequate MEASUREMENTS (Male / Female) Normal Values 2D ECHO LV Diastolic Diameter PLAX 5.2 cm 4.2 - 5.9 / 3.9 - 5.3 cm IVS Diastolic Thickness 0.9 cm 0.6 - 1.0 / 0.6 - 0.9 cm IVS Systolic Thickness 2.0 cm LVPW Diastolic Thickness 2.0 cm 0.6 - 1.0 / 0.6 - 0.9 cm LVPW Systolic Thickness 1.9 cm LVOT Diameter 2.0 cm LV Ejection Fraction 2D Teich 65.8 % LV Ejection Fraction MOD 4C 61.0 % LV Ejection Fraction MOD 2C 52.7 % LV Ejection Fraction 2C AL 56.3 % LA Diameter 3.0 cm RA Systolic Volume 4C AL 14.2 ml RA Systolic Volume 4C MOD 14.3 ml LA Sys Volume AL 32.8 cm cubed LA Sys Volume Index AL 16.2 cm cubed/m squared Aorta at Sinotubular Diameter 2.5 cm IVC Diameter 1.5 cm M-MODE LA Ao Ratio MM 0.7 AV Cusp Separation MM 1.9 cm DOPPLER AV Peak Velocity 116.0 cm/s LVOT Peak Velocity 117.0 cm/s AV Area Cont Eq vti 2.8 cm squared AV Area Cont Eq pk 3.2 cm squared MV Peak Velocity 104.0 cm/s MV Area PHT 3.8 cm squared Mitral E to A Ratio 2.0 TR Peak Velocity 231.0 cm/s TR Peak Gradient 21.3 mmHg TR Mean Velocity 204.0 cm/s TR Mean Gradient 17.7 mmHg TR Velocity Time Integral 65.4 cm TV Peak E Velocity 42.0 cm/s PV Peak Velocity 87.0 cm/s RV Ejection Time 0.3 s FINDINGS Left Ventricle Left renal is normal in size. LV systolic function is normal with EF of 55 to 60%. No regional wall motion abnormalities are seen. Right Ventricle Normal in size and function Right Atrium Normal in size Left Atrium Normal in size Mitral Valve Structurally normal mitral valve. Mild mitral regurgitation. Aortic Valve Structurally normal aortic valve. No significant stenosis or regurgitation. Tricuspid Valve Mild tricuspid regurgitation. Insufficient TR jet to calculate RVSP Pulmonic Valve Not well visualized Pericardium Normal Aorta Normal in size IVC Appears to be normal CONCLUSIONS LV systolic function is normal with EF of 55-60% Mild mitral regurgitation Mild tricuspid regurgitation No comparison studies are available. Vernon Chilel MD (Electronically Signed) Final Date: 09 June 2024 11:13 S
== END 2024-06-04 08:26 | disposition home or self-care (01) ==
LOC: RAD 08:26
PROVIDERS: PCP Family Medicine; Visit Provider Internal Medicine Cardiovascular Disease
DX: R07.9 Chest pain, unspecified (principal); R06.02 Shortness of breath
CPT/HCPCS: 93306

== ENCOUNTER 2024-07-31 06:59 | Outpatient (RCR) | payer OTHER, SELFPAY | END 2024-08-03 23:59 | disposition home or self-care (01) | LOC: SPT 06:59 | PROVIDERS: Visit Provider Family Medicine | DX: M54.59 Other low back pain (principal); M54.31 Sciatica, right side; M25.551 Pain in right hip | CPT/HCPCS: 97161; G0283 ==

== ENCOUNTER 2024-08-04 06:00 | Outpatient (RCR) | payer OTHER, SELFPAY | END 2024-09-03 23:59 | disposition home or self-care (01) | LOC: SPT 06:00 | PROVIDERS: Visit Provider Family Medicine | DX: M79.661 Pain in right lower leg (principal); M79.662 Pain in left lower leg | CPT/HCPCS: 97110 ==

== ENCOUNTER 2025-02-07 15:09 | Outpatient (CLI) | payer OTHER, SELFPAY ==
--- NOTE | 2025-02-07 15:14 | US_ITS ---
WS: [id number] ULTRASOUND SOFT TISSUES LEFT neck. HISTORY: NECK MASS, history of melanoma. COMPARISON: None available. TECHNIQUE: 2-D and color Doppler imaging is submitted. Patient directed ultrasound to the LEFT supraclavicular region. There are several hypoechoic masses which are slightly lobulated without significant increased vascularity. The one of the largest masses near the clavicle measures 2.3 x 1.7 x 1.6 cm. There are several similar hypoechoic masses. US/US soft tissue head neck [id number] IMPRESSION: Several hypoechoic masses in the region of the LEFT clavicle. I suspect these a re probably abnormal lymph nodes. Complete loss of the normal fatty hilum with thickened cortex. Metastatic disease is suspected. Recommend follow-up neck and chest CT with IV contrast. Lymphadenopathy needs to be excluded.
== END 2025-02-07 15:10 | disposition home or self-care (01) ==
LOC: RAD 15:11
PROVIDERS: PCP Family Medicine; Visit Provider Family Medicine
DX: R22.1 Localized swelling, mass and lump, neck (principal)
CPT/HCPCS: 76536

== ENCOUNTER 2025-02-14 14:47 | Outpatient (CLI) | payer OTHER, SELFPAY ==
--- NOTE | 2025-02-14 14:54 | CTR_ITS ---
PROCEDURE INFORMATION: Exam: CT Neck With Contrast Exam date and time: 02/14/2025 3:27 PM Age: 54 years old Clinical indication: Mass, lump, or swelling in neck; -swell lump on left lower neck-bb; Additional info: Neck mass, swelling, lump in chest TECHNIQUE: Imaging protocol: Computed tomography of the neck with contrast. Radiation optimization: All CT scans at this facility use at least one of these dose optimization techniques: automated exposure control; mA and/or kV adjustment per patient size (includes targeted exams where dose is matched to clinical indication); or iterative reconstruction. Contrast material: OMNIPAQUE 350; Contrast volume: 75 ml; Contrast route: INTRAVENOUS (IV); COMPARISON: US soft tissue head neck [id number] 02/07/2025 3:28 PM RADIATION DOSE METRICS: Total DLP (mGy-cm): 212.49 FINDINGS: Brain: Visible portions of the brain are unremarkable. Paranasal sinuses: There is mild badpp-[id number]-[id number]-left sphenoid sinus chronic inflammatory changes. The visible paranasal sinuses are otherwise unremarkable. Salivary glands: Normal. Glands are normal in size. Pharynx: Unremarkable. No significant tonsillar enlargement. Larynx: Unremarkable. Epiglottis is normal. Thyroid: Thyroid appears normal. Trachea: Visualized trachea is unremarkable. Lungs: Unremarkable as visualized. Lymph nodes: Today's examination demonstrates level 5A and 5B left-sided lymphadenopathy (and left axillary lymphadenopathy seen on concurrent chest CT., with a necrotic or suppurative appearing lymph node identified on series 3, image 74, lying in the anterior border of the left supraspinatus muscle belly. No adenopathy superior to the axillary plane of the thyroid cartilage is noted. Bones/joints: There is no acute fracture, lytic, or blastic lesion. Soft tissues: No muscle atrophy is observed. Other findings: The upper aerodigestive tract is unremarkable in appearance. CT/CT neck w con* [id number] IMPRESSION: 1. Left-sided level 5A and 5B lymphadenopathy with a suppurative or necrotic appearing level 5A lymph node (and left axillary lymphadenopathy on subsequent chest CT). Findings are worrisome for lymphoma or metastatic disease. The suppurative lymph node raises the possibility of an entity such as scrofula. Clinical correlation is needed. 2. Otherwise unremarkable soft tissue neck CT.
--- NOTE | 2025-02-14 15:14 | CTR_ITS ---
PROCEDURE INFORMATION: Exam: CT Chest With Contrast; Diagnostic Exam date and time: 02/14/2025 3:23 PM Age: 54 years old Clinical indication: Mass, lump, or swelling in the chest; Swell lump under left arm-bb; Additional info: Swelling, lump in chest, neck mass TECHNIQUE: Imaging protocol: Diagnostic computed tomography of the chest with contrast. Radiation optimization: All CT scans at this facility use at least one of these dose optimization techniques: automated exposure control; mA and/or kV adjustment per patient size (includes targeted exams where dose is matched to clinical indication); or iterative reconstruction. Contrast material: OMNI 350; Contrast volume: 75 ml; Contrast route: INTRAVENOUS (IV); COMPARISON: CT angio chest PE protcl [id number] 12/07/2018 11:20 AM RADIATION DOSE METRICS: Total DLP (mGy-cm): 405.86 FINDINGS: Lungs: Interval development 8 mm nodule medially in the right lower lobe, image 33 of series 4. New 3 mm nodule posteriorly in the right lower lobe, image 26 of series 4. Mild peripheral atelectasis posteromedially in the right lower lobe. Pleural spaces: Unremarkable. No pneumothorax. No pleural effusion. Heart: Unremarkable. No cardiomegaly. No pericardial effusion. Coronary arteries: Coronary artery calcifications are not identified. Mediastinal space: No evidence for hilar or mediastinal chelsea enlargement. Lymph nodes: Several enlarged lymph nodes are identified in the left axilla. The largest node measures 3.6 x 2.5 cm. A 19 mm enlarged node is present in the left subpectoral region. No right axilla nodes or supraclavicular chelsea enlargement identified. Vasculature: Unremarkable. No aortic aneurysm. Spleen: Unchanged peripheral 11 mm hypodensity in the spleen. Bones/joints: No acute osseous abnormality. Soft tissues: Unremarkable. CT/CT chest w con* [id number] IMPRESSION: 1. Left axillary lymphadenopathy. Tissue sampling is recommended. 2. New 8 mm and 3 mm right lower lobe nodules. To assess for neoplastic pulmonary lesions, PET-CT or three-month follow-up chest CT could be obtained.
[2025-02-14] MEDS: iohexol 350 mg/mL 500 mL Btl (per mL) IV ×2 (15:36)
== END 2025-02-14 14:48 | disposition home or self-care (01) ==
LOC: RAD 14:51
PROVIDERS: PCP Family Medicine; Visit Provider Family Medicine
DX: R22.1 Localized swelling, mass and lump, neck (principal)
CPT/HCPCS: 70491; 71260

== ENCOUNTER 2025-05-14 13:45 | Outpatient (CLI) | payer OTHER, SELFPAY ==
--- NOTE | 2025-05-14 13:56 | XR_ITS ---
WS: [id number] XR shoulder RT min 2V* [id number] REASON FOR EXAM: PAIN IN R SHOULDER FINDINGS: No fracture or focal bone lesion. Mild narrowing of the acromioclavicular joint space with mild subchondral sclerosis and osteophytosis. The glenohumeral joint space is not well demonstrated with. It appears intact with minimal narrowing. There is minimal subchondral sclerosis in the glenoid. 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 Minimal osteoarthritis in t he glenohumeral joint.
== END 2025-05-14 13:46 | disposition home or self-care (01) ==
PROVIDERS: PCP Family Medicine; Visit Provider Family Medicine
DX: M25.511 Pain in right shoulder (principal); M19.011 Primary osteoarthritis, right shoulder
CPT/HCPCS: 73030

== ENCOUNTER 2025-05-27 08:01 | Outpatient (RCR) | payer OTHER, SELFPAY | END 2025-06-05 23:59 | disposition home or self-care (01) | LOC: SPT 08:01 | PROVIDERS: Visit Provider Family Medicine | DX: M25.511 Pain in right shoulder (principal) | CPT/HCPCS: 97110; 97140; 97161 ==